=== PATIENT | female | born 1995 | race American Indian/Alaskan Native ===

== ENCOUNTER 2022-02-26 05:59 | Day surgery (SDC) | payer OTHER ==
--- NOTE | 2022-02-23 11:08 | Anesthesia Consultation ---
Anesthesia Consult and Med Hx Date of service: 02/26/22 - Airway Anesthetic Teeth Evaluation: Good ROM Head & Neck: Adequate Mental/Hyoid Distance: Adequate Mallampati Class: Class II Intubation Access Assessment: Probably Good - Pulmonary Exam CTA: Yes - Cardiac Exam Cardiac Exam: RRR - Pre-Operative Health Status ASA Pre-Surgery Classification: ASA2 Proposed Anesthetic Plan: General Nerve Block: TAP/ES - Pulmonary Hx Smoking: Yes (former smoker black and milds, current smoker THC) Hx Asthma: Yes (childhood; no recent symptoms) Hx Respiratory Symptoms: No - Cardiovascular System Hx Hypertension: No - Central Nervous System CVA: No - Endocrine Hx Renal Disease: No Hx Liver Disease: No Hx Insulin Dependent Diabetes: No Hx Non-Insulin Dependent Diabetes: No Hx Thyroid Disease: No - Hematic Hx Anemia: Yes (remote hx blood transfusion) - Other Systems Hx Substance Use: Yes (THC) Hx Obesity: No - Additional Comments Anesthesia Medical History Comments: No prior GA, No FHx anesthetic complications.
[2022-02-23 11:18] LABS: Basophils % (Auto) 0.2 % (0.0-1.8); Eosinophils % (Auto) 0.6 % (0.0-4.3); Hemoglobin 13.5 gm/dl (10.1-14.3); Lymphocytes # (Auto) 1.2 K/mm3 (1.2-5.4); Lymphocytes % (Auto) 20.6 % (13.4-35.0); Mean Corpuscular HGB Conc 33 % (30-34); Mean Corpuscular Volume 88 fl (79-97); Monocytes # (Auto) 0.3 K/mm3 (0.0-0.8); Monocytes % (Auto) 4.5 % (0.0-7.3); Platelet Count 260 K/mm3 (140-440); Red Blood Count 4.66 M/mm3 (3.65-5.03); Red Cell Distribution Width 15.2 % (13.2-15.2)
[2022-02-23 11:59] LABS: Blood Urea Nitrogen 10 mg/dL (7-17); Calcium 9.5 mg/dL (8.4-10.2); Hemolysis Index 9
[2022-02-23 12:06] LABS: BUN/Creatinine Ratio 20
--- NOTE | 2022-02-23 14:44 | History and Physical Report ---
History of Present Illness Date of examination: 02/20/22 History of present illness: Patient has been reassessed/reevaluated. H&P has been reviewed. No interval changes. This is a 26 years old female who presents with menstrual disorder. The symptoms began >1 year ago. She complains of heavy bleeding, clotting, and dysmenorrhea.. Menses started at age 15. Interval between menses is 28 days and 30 days. Menstrual flow lasts 6 days and 7 days. Patient reports that for pain she uses ibuprofen. The patient also presents with pelvic pain. The symptoms began many years ago and is worsening. Patient states she was told it was endometriosis, but previuos treatments have not helped. She complains of dysmenorrhea, nausea and vomiting, but denies dysuria, dyspareunia, vaginal itching, vaginal discharge, vaginal odor, painful bowel movements, constipation, diarrhea, back pain and fever. Pain is located RLQ, LLQ and suprapubic. She describes the pain as achy, sharp and cramping. Duration of pain is >1 hour. She was seen at [place] and diagnosed with fibroids. Patient's work up in my office has included a transvaginal ultrasound which revealed leiomyoma. Patient's symptoms when present disrupts her normal daily activities. Conservative therapies have failed. Patient desires definitive treatment ] Vital Signs: Patient Profile: 26 Years Old Female LMP: 02/20/2022 Height: 67 inches Weight: 133 pounds BMI: 20.83 Temp: 97.7 degrees F BP sittin / 80 (left arm) Menstrual History: LMP (date): 02/20/2022 Current Method of Contraception: None Past History : 0 Term Births: 0 Premature Births: 0 Living Children: 0 Para: 0 Mult. Births: 0 Prev : 0 Aborta: 0 Elect. Ab: 0 Spont. Ab: 0 Ectopics: 0 Current Allergies (reviewed today): No known allergies Past Medical History: Asthma G E R D Fibroids Past Surgical History: Jaw surgery (abscess) Family History Summary: Other Family Member - Has No Family History of Colon Cancer - Entered On: 12/25/2021 Other Family Member - Has No Family History of Breast Cancer - Entered On: 12/25/2021 Other Family Member - Has Family History of Thyroid Disease - Entered On: 12/25/2021 Other Family Member - Has Family History of Hypertension - Entered On: 12/25/2021 Other Family Member - Has Family History of Diabetes - Entered On: 12/25/2021 Other Family Member - Has Family History of CVA or Stroke - Entered On: 12/25/2021 Other Family Member - Has Family History of Coronary Heart Disease - Entered On: 12/25/2021 Social History: Marital Status: Single Children: 0 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 of genital herpes: no Hx of STD: None Review of Systems General Complains of fatigue. Denies fever, chills, sweats, anorexia, weakness, malaise, weight loss and sleep disorder. Complains of menorrhagia, pelvic pain and painful periods. Denies vaginal discharge, incontinence, dysuria, hematuria, urinary frequency, amenorrhea, abnormal vaginal bleeding, genital sores, decreased libido, painful sex, urinary urgency, hot flashes, vaginal dryness, vaginal itching and vaginal odor. CV Denies chest pains, palpitations, syncope, dyspnea on exertion, orthopnea, PND and peripheral edema. Resp Denies cough, dyspnea at rest, excessive sputum, hemoptysis, wheezing and pleurisy. GI Denies nausea, vomiting, diarrhea, constipation, change in bowel habits, abdominal pain, melena, hematochezia, jaundice, gas/bloating, indigestion/hea rtburn, dysphagia and odynophagia. Breast Denies left breast lump, right breast lump, nipple discharge, bloody discharge from nipple, breast pain, abnormal mammogram and breast enlargement. Psych Denies depression, anxiety, irritability and mood swings. Patient has been reassessed/reevaluated/re-examined. H&P has been reviewed. No interval changes. Past History Past Medical History: other (SEE HPI) Past Surgical History: Other (SEE HPI) Social history: full code, other (SEE HPI) Family history: other (SEE HPI) Medications and Allergies Allergies Allergy/AdvReac Type Severity Reaction Status Date / Time No Known Allergies Allergy Unverified 01/21/22 12:39 Home Medications Medication Instructions Recorded Confirmed Last Taken Type Acetaminophen [Tylenol Extra 500 mg PO PRN 01/21/22 01/21/22 Unknown History Strength] Celecoxib [celeBREX] 200 mg PO BID 01/21/22 01/21/22 Unknown History Naproxen Sodium [Naproxen Sodium 550 mg PO BID 01/21/22 01/21/22 Unknown History 550mg] medroxyPROGESTERone ACETATE 2 tab PO DAILY 01/21/22 01/21/22 Unknown History [Medroxyprogesterone Acetate] Active Meds: Active Medications Acetaminophen (Acetaminophen 500 Mg Tab) 1,000 mg PO PREOP JUAN R Stop: 02/26/22 20:00 Celecoxib (Celecoxib 200 Mg Cap) 200 mg PO PREOP NR Stop: 02/26/22 20:00 Fentanyl (Fentanyl 100 Mcg/2 Ml Inj) 100 mcg IV ONCE PRN PRN Reason: sedation for nerve block Stop: 02/26/22 20:00 Gabapentin (Gabapentin 300 Mg Cap) 300 mg PO PREOP NR Stop: 02/26/22 20:00 Lactated Ringer's (Lactated Ringers) 1,000 mls @ 100 mls/hr IV DIRECT JUAN R Stop: 02/26/22 23:59 Methocarbamol 1,000 mg/ Sodium (Chloride) 260 mls @ 250 mls/hr IV PREOP JUAN R Stop: 02/26/22 20:00 Midazolam HCl (Midazolam 2 Mg/2 Ml Inj) 2 mg IV PREOP NR Stop: 02/26/22 20:00 Scopolamine (Scopolamine Transdermal Patch 72 Hr) 1 each TD PREOP NR Stop: 02/26/22 20:00 Review of Systems Constitutional: other (SEE HPI) Exam - Physical Exam Narrative exam: HEENT: normocephalic, no lesions or deformities Skin no significant abnormal lesions or rashes Chest: respiratory effort normal, clear to auscultation CV: regular, normal S1-S2, no murmur, no rub, no gallop Abdomen: normal bowel sounds, soft, nontender, no HSM Neuro: no gross anomalities Extremities: no clubbing, cyanosis, or edema 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 Exams Vulva/Vagina: No lesions, normal BUS, normal rugae Cervix: No lesions; no cervical motion tenderness Uterus: unable to palpate due to patient's guarding Adnexae: unable to palpate due to patient's guarding Rectovaginal: exam defered - Constitutional Vitals: Temp Pulse Resp BP Pulse Ox 98 F 84 16 126/84 100 02/23/22 10:45 02/23/22 10:45 02/23/22 10:45 02/23/22 10:45 02/23/22 10:45 Results - Labs CBC & Chem 7: 02/23/22 06:00 02/23/22 10:50 Labs: Abnormal lab results 02/23/22 02/23/22 Range/Units 06:00 10:50 Seg Neutrophils % 74.1 H (40.0-70.0) % Creatinine 0.5 L (0.6-1.2) mg/dL Glucose 104 H (65-100) mg/dL Assessment and Plan - Patient Problems (1) Intramural leiomyoma of uterus Current Visit: No Status: Acute Plan to address problem: Diagnosis explained to patient . Questions answered. Discussed with patient various medical, surgical and radiological therapies common for treatment including expectant management, myomectomy hysterectomy and uterine artery embolization Patient desires definitive treatment Patient desires to retain future fertility. She desires myomectomy. Discussed risks and benefits of laparotomy and robotic assisted approaches Patient desires robotic assisted myomectomy. Discuss the risks of the surgery including infection, bleeding possibly heavy enough to require a blood transfusion, possible damage to bowel, bladder or ureter. Patient understands that there is a possibility that a hysterectomy maybe indicated for severe bleeding not resoved with conservative measures.Patient advised the small risks of spreading of malignancy if morcellator is used during the surgery patient understands and approve of use if necessary. All her questions were answered. Patient understands and desires to proceed. (2) Menorrhagia Current Visit: No Status: Acute Qualifiers: Menorrhagia type: with regular cycle Qualified Code(s): N92.0 - Excessive and frequent menstruation with regular cycle Plan to address problem: Probably secondary to # 1 (3) Dysmenorrhea Current Visit: No Status: Acute Plan to address problem: Probably secondary to # 1 (4) Anemia Current Visit: No Status: Acute Qualifiers: Iron deficiency anemia type: chronic blood loss Plan to address problem: Probably secondary to # 3 (5) Pelvic pain Current Visit: No Status: Acute (6) Asthma Current Visit: No Status: Chronic Qualifiers: Asthma severity: mild
[2022-02-26] MEDS ORDERED: MIDAZOLAM 2 MG/2 ML INJ IV NR (06:00)
[2022-02-26] MEDS ORDERED: CELECOXIB 200 MG CAP PO NR (06:00)
[2022-02-26] MEDS ORDERED: GABAPENTIN 300 MG CAP PO NR (06:00)
[2022-02-26] MEDS ORDERED: ACETAMINOPHEN 500 MG TAB PO SCH (06:00)
[2022-02-26] MEDS ORDERED: fentaNYL 100 MCG/2 ML INJ IV PRN (06:00)
[2022-02-26] MEDS ORDERED: LACTATED RINGERS 1,000 ML IV SCH (06:00)
[2022-02-26] MEDS ORDERED: methOCARBAMOL 1,000 MG in SODIUM CHLORIDE 0.9% 250ML 250 ML IV SCH (06:00)
[2022-02-26] MEDS: SCOPOLAMINE TRANSDERMAL PATCH 72 HR TD NR ×2 (06:40→08:36)
[2022-02-26] MEDS ORDERED: propofoL 200 MG/20 ML VIAL IV ONE (07:12)
[2022-02-26] MEDS ORDERED: ROCURONIUM 50 MG/5 ML INJ IV ONE (07:12)
[2022-02-26] MEDS ORDERED: KETAMINE/STERILE WATER 50 MG/ML SYRINGE ONE (07:12)
[2022-02-26] MEDS ORDERED: LIDOCAINE MPF (2%) 20 MG/1 ML VIAL 5 ML ONE (07:12)
[2022-02-26] MEDS ORDERED: ceFAZolin/Water 2 GM/20 ML 2 GM/20 ML SYRINGE IV NR (07:30)
[2022-02-26] MEDS ORDERED: dexAMETHasone 4 MG/ML VIAL ONE (07:31)
[2022-02-26] MEDS ORDERED: BUPIVACAINE/PF (0.25%) 2.5 MG/ML 30 ML VIAL INFILTRATI ONE (07:31)
[2022-02-26] MEDS ORDERED: SODIUM CHLORIDE 0.9% 100 ML ONE (07:33)
[2022-02-26] MEDS ORDERED: VASOPRESSIN 20 UNIT/1 ML INJ ONE (07:33)
--- NOTE | 2022-02-26 08:25 | Anesthesia Day of Surgery ---
Anesthesia Day of Surgery - Day of Surgery Patient Examined: Yes Patient H&P Reviewed: Yes Patient is NPO: Yes
[2022-02-26] MEDS ORDERED: oxyCODONE /ACETAMINOPHEN 5-325MG TAB PO PRN (09:00)
[2022-02-26] MEDS ORDERED: ONDANSETRON 4 MG/2 ML INJ IV PRN (09:00)
[2022-02-26] MEDS ORDERED: VASOPRESSIN 20 UNIT/1 ML INJ IM ONE (09:08)
[2022-02-26] MEDS ORDERED: SODIUM CHLORIDE 0.9% IRRIG SOLN 2000 ML IR ONE (09:09)
[2022-02-26] MEDS ORDERED: SODIUM CHLORIDE 0.9% IRR 1,500 ML BOTTLE IR ONE (09:09)
[2022-02-26] MEDS ORDERED: SODIUM CHLORIDE 0.9% 100 ML IVPB IV ONE (09:09)
[2022-02-26] MEDS ORDERED: HYDROcodone/ACETAMINOPHEN 5-325 MG TAB PO PRN (10:31)
[2022-02-26] MEDS ORDERED: ACETAMINOPHEN 325 MG TAB PO PRN (10:31)
[2022-02-26] MEDS ORDERED: ONDANSETRON 4 MG/2 ML INJ ONE (10:32)
[2022-02-26] MEDS ORDERED: KETOROLAC 30 MG/1 ML INJ ONE (10:32)
[2022-02-26] MEDS ORDERED: HYDROmorphone 1 MG/1 ML INJ ONE (10:33)
--- NOTE | 2022-02-26 10:54 | Operative Report ---
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 No clear evidence of endometriosis seen. Patient with normal tubes and ovaries bilaterally. Specimen(s): Uterine leiomyomata Procedure: Patient taken operating room where general endotracheal anesthesia was induced difficulty. She was placed in dorsal lithotomy position prepped and draped in usual normal sterile fashion for robotic procedure. The Henson catheter was placed in urinary bladder without difficulty speculum placed in the vagina. A Summly uterine manipulator was placed without any difficulty. Then attention was switched to the patient's abdomen. Supra-umbilical incision was made with a knife. Spread with a hemostat. A 10-12 Trocar was placed in this incision while lifting out anterior abdominal wall under direct visualization. Intra- abdominal cavity was entered without any evidence of internal organ damage. Patient was insufflated approximately 3 and half liters of CO2 gas. Patient's pelvic findings noted above. The patient was perceived to be a candidate for robotic procedure. Three 8 mm robotic instrument trocars were placed. One on either side of the midline camera trocar approximately 8 cm from the midline and a third in the left lower quadrant approximately 2 fingerbreadths above the colby c crest. The trocars were placed under direct visualization with no signs of internal organ damage. An assistant professor nurse education port was placed in the right lower quadrant 2 fingerbreadths above the iliac crest under direct visualization without any evidence of internal organ damage, this was a 10-12 trocar. Nilton Gimenez fascia closure systems were placed in both the right lower quadrant trocar position and the midline trocar camera position. The patient was then placed in severe Trendelenburg position. At this time the da Kaye robot was docked on the patient's left side and robotic trocars were connected and robotic instruments placed in the normal fashion. At that time I my place under the operating braden. Pitressin was placed on the base of each of the leiomyomata with blanching clearly seen. The pedunculated posterior leiomyomata with grabs the serosa was cut within robotic scissors and this myoma was removed through the assistant professor nurse education port easily with the tenaculum. The serosa overlying the lower posterior myomas were then incised with the scissors, the myoma was easily cut and removed with the assistant professor nurse education tenaculum through the cyst port. Attention was then switched to the larger anterior myoma. Again the serosa of this myoma was then cut with the scissors. This myoma was then removed with cautery and blunt dissection. The myoma was removed from the bed in the myometrium with no evidence of entrance into the endometrial cavity. This myoma was removed through the assistant professor nurse education port by cutting it into 3 parts with the robotic scissors. The bed of the large myoma was irrigated and found to be hemostatic with Bovie. The defect in the myometrium was closed in running manner with 0 V-Loc sutures with good hemostasis. The remaining posterior defects were closed similarly with 0 Vicryl V-Loc suture with good hemostasis. The patient's pelvis was copiously irrigated and suction revealing good hemostasis. Surgicel was placed draped in the uterus and covering all visible suture lines. Patient's Henson catheter revealed a clear urine with no evidence of mixture with blood. All instruments were removed. The da Kaye device was undocked. The abdominal incisions were closed with 2-0 Vicryl it was placed through the Nilton Gimenez fascial closure system. This was followed by 4-0 Monocryl subcutaneously. Patient tolerated procedure well. Patient was awakened in operating room and accompanied to recovery room in good condition.
[2022-02-26] MEDS: HYDROmorphone 1 MG/1 ML INJ IV PRN ×4 (11:08→11:38)
--- NOTE | 2022-02-26 15:01 | Discharge Summary ---
Short Stay Discharge Plan Activity: advance as tolerated Diet: regular Wound: open to air Additional Instructions: Patient was admitted underwent the above him procedure without any complications. Patient was admitted and underwent above procedure without complications. Her post operative extended recovery observation course was benign she was afebrile throughout. Patient had no orthostatic symptoms. Patient was tolerating regular diet and voiding without difficulty at time of discharge. Patient incision was healing well without evidence of infection. Patient will be discharged with follow-up in office in 1-2 weeks for postop check patient to call office for any fever, chills, nausea, vomiting or pain not controlled by pain medication. Follow up with: PRIMARY CARE, [Primary Care Provider] - 7 Days Forms: Outpatient Surgery DC Inst. Prescriptions: Naproxen Sodium [Naproxen Sodium 550mg] 550 tab PO Q12HR #30 tab oxyCODONE /ACETAMINOPHEN [Percocet 5/325 mg] 1 tab PO Q6HR PRN #20 tablet PRN Reason: Pain
--- NOTE | 2022-02-26 15:01 | Post Anesthesia Evaluation ---
- Post Anesthesia Evaluation Patient Participated: Yes Airway Patent: Yes Stable Respiratory Function: Yes Nausea/Vomiting: No Temp > 96.8F: Yes Pain Manageable: Yes Adequeate Hydration: Yes Anesthesia Complications: No
[2022-02-26 15:47] VITALS: BP 118/75
== END 2022-02-26 15:40 | disposition home or self-care (01) ==
LOC: OR 05:59
PROVIDERS: ATTEND Obstetrics & Gynecology
DX: N92.0 Excessive and frequent menstruation with regular cycle (principal); D25.1 Intramural leiomyoma of uterus; R10.2 Pelvic and perineal pain; N94.4 Primary dysmenorrhea; D64.9 Anemia, unspecified; J45.909 Unspecified asthma, uncomplicated; F41.9 Anxiety disorder, unspecified; Z20.822 Contact with and (suspected) exposure to COVID-19; Z79.899 Other long term (current) drug therapy; Z98.890 Other specified postprocedural states
CPT/HCPCS: 36415; 58545; 64488; 80048; 84703; 85025; 86850; 86900; 86901; 88305; C1765; J0690; J1100; J1170; J1885; J2250; J2405; J2704; J2800; J3010; J3490; J7050; J7120; S2900; U0003; 64450

== ENCOUNTER 2022-03-17 09:45 | Emergency (ER) | payer OTHER ==
[2022-03-17 12:21] LABS: Hematocrit 40.3 % (30.3-42.9); Hemoglobin 13.8 gm/dl (10.1-14.3); Mean Corpuscular HGB Conc 34 % (30-34); Mean Corpuscular Volume 86 fl (79-97); Platelet Count 293 K/mm3 (140-440); Red Blood Count 4.69 M/mm3 (3.65-5.03); Red Cell Distribution Width 14.4 % (13.2-15.2)
[2022-03-17 12:43] LABS: Alanine Aminotransferase 17 units/L (7-56); BUN/Creatinine Ratio 20; Blood Urea Nitrogen 10 mg/dL (7-17); Calcium 9.6 mg/dL (8.4-10.2); Hemolysis Index 23
--- NOTE | 2022-03-17 13:22 | Ultrasound Report ---
ULTRASOUND PELVIS COMPLETE ULTRASOUND TRANSVAGINAL INDICATION / CLINICAL INFORMATION: pain s/p myomectomy. TECHNIQUE: Transabdominal and Transvaginal. Duplex Color Doppler used: Yes. COMPARISON: None available FINDINGS: UTERUS: Present. Anteverted. - Appearance (if present): Slightly heterogeneous. - Size in cm (if present): 9.3 x 4.4 x 4.6 - Endometrial Complex (if present): No significant abnormality.. Thickness in cm (if measured) = 1.5 - Mass lesions: There is a 1.8 x 0.9 x 1.3 cm hypoechoic area in the anterior wall which may represen t a small fibroid or possibly a myomectomy site. A 1.2 cm subserosal fibroid is identified in the ant erior fundus. No large submucosal fibroid is appreciated. - Additional findings: None. RIGHT ADNEXA: The right ovary measures 5.8 x 3.3 x 3.1 and contains a complex 3.6 cm cyst containing debris and thin internal septation. This may represent a hemorrhagic cyst. Normal color Doppler blood flow. LEFT ADNEXA: The left ovary is unremarkable measuring 3.1 x 1.9 x 2.3 cm. Normal color Doppler blood flow. URINARY BLADDER: No significant abnormality. FREE FLUID: Trace free fluid in the cul-de-sac appears physiologic. ADDITIONAL FINDINGS: None. IMPRESSION: 3.6 cm complex right ovarian cyst as described. This may represent a hemorrhagic cyst. Consider foll ow-up. Mild uterine fibroid disease. Possible myomectomy site as described. No large submucosal fibroid. Unremarkable endometrium and left ovary. Signer Name: Meek Moscoso Jr, MD Signed: 03/17/2022 1:18 PM Workstation Name: [id number]
[2022-03-17 16:02] LABS: Bilirubin,Urine NEG (Negative); Blood,Urine NEG (Negative); Color,Urine Yellow (Yellow); Mucus,Urine 2+ /HPF; Protein,Urine <15 mg/dL mg/dL (Negative); Urobilinogen,Urine < 2.0 mg/dL (<2.0); WBC,Urine < 1.0 /HPF (0.0-6.0)
--- NOTE | 2022-03-17 16:47 | Emergency Department Report ---
ED Abdominal Pain HPI - General Chief Complaint: Abdominal Pain Stated Complaint: STOMACH PAIN Time Seen by Provider: 03/17/22 14:07 Source: patient Mode of arrival: Ambulatory Limitations: No Limitations - History of Present Illness Initial Comments: 26 yo black female who had a robotic myomectomy on 02/[address] Alves presents to the ed for evaluation of abdominal pain. She states that for the past 2 days, she has had increasing pain along with n/v. She states that she had same symptoms just prior to having myomectomy. She denies fever, diarrhea, dysuria. She states that she is scheduled for follow up on 04/06 but pain is to bad to wait so she decided to come here for further evaluation. MD Complaint: abdominal pain -: Gradual, days(s) (2) Location: LLQ, RLQ Radiation: none Migration to: no migration Severity: severe Quality: aching Associated Symptoms: nausea, vomiting. denies: diarrhea, fever, chills, constipation, dysuria, hematemesis, melena, hematuria, anorexia, syncope - Related Data Home Medications Medication Instructions Recorded Confirmed Last Taken Acetaminophen [Tylenol Extra 500 mg PO PRN 01/21/22 02/26/22 02/22/22 09:00 Strength] Celecoxib [celeBREX] 200 mg PO BID 01/21/22 02/26/22 01/26/22 09:00 Naproxen Sodium [Naproxen Sodium 550 mg PO BID 01/21/22 02/26/22 01/26/22 09:00 550mg] medroxyPROGESTERone ACETATE 2 tab PO DAILY 01/21/22 02/26/22 01/26/22 09:00 [Medroxyprogesterone Acetate] Previous Rx's Medication Instructions Recorded Last Taken Type Naproxen Sodium [Naproxen Sodium 550 tab PO Q12HR #30 tab 02/26/22 Unknown Rx 550mg] oxyCODONE /ACETAMINOPHEN [Percocet 1 tab PO Q6HR PRN #20 tablet 02/26/22 Unknown Rx 5/325 mg] Ibuprofen [Motrin 600 MG tab] 600 mg PO Q8H PRN #30 tablet 03/17/22 Unknown Rx Allergies Allergy/AdvReac Type Severity Reaction Status Date / Time No Known Allergies Allergy Verified 03/17/22 10:19 ED Review of Systems ROS: Stated complaint: STOMACH PAIN Other details as noted in HPI Comment: All other systems reviewed and negative Constitutional: denies: chills, fever Respiratory: denies: SOB with exertion Cardiovascular: denies: chest pain, palpitations Gastrointestinal: abdominal pain, nausea, vomiting. denies: diarrhea, constipation, hematemesis, melena, hematochezia Genitourinary: denies: urgency, dysuria, frequency, hematuria, discharge, dyspareunia Musculoskeletal: denies: back pain Neurological: denies: headache, weakness, numbness, paresthesias, abnormal gait ED Past Medical Hx - Past Medical History Previous Medical History?: Yes Hx Hypertension: No Hx Diabetes: No Hx GERD: No Hx Liver Disease: No Hx Renal Disease: No Hx Sickle Cell Disease: No Hx Asthma: Yes (childhood; no recent symptoms) Hx Tuberculosis: No Hx HIV: No - Surgical History Past Surgical History?: Yes Additional Surgical History: myomectomy - Social History Smoking Status: Never Smoker Substance Use Type: None - Medications Home Medications: Home Medications Medication Instructions Recorded Confirmed Last Taken Type Acetaminophen [Tylenol Extra 500 mg PO PRN 01/21/22 02/26/22 02/22/22 09:00 History Strength] Celecoxib [celeBREX] 200 mg PO BID 01/21/22 02/26/22 01/26/22 09:00 History Naproxen Sodium [Naproxen Sodium 550 mg PO BID 01/21/22 02/26/22 01/26/22 09:00 History 550mg] medroxyPROGESTERone ACETATE 2 tab PO DAILY 01/21/22 02/26/22 01/26/22 09:00 History [Medroxyprogesterone Acetate] Naproxen Sodium [Naproxen Sodium 550 tab PO Q12HR #30 tab 02/26/22 Unknown Rx 550mg] oxyCODONE /ACETAMINOPHEN [Percocet 1 tab PO Q6HR PRN #20 tablet 02/26/22 Unknown Rx 5/325 mg] Ibuprofen [Motrin 600 MG tab] 600 mg PO Q8H PRN #30 tablet 03/17/22 Unknown Rx ED Physical Exam - General Limitations: No Limitations General appearance: alert, in no apparent distress - Head Head exam: Present: atraumatic, normocephalic - Eye Eye exam: Present: normal appearance. Absent: conjunctival injection - Neck Neck exam: Present: normal inspection, full ROM. Absent: tenderness, lymphadenopathy - Respiratory Respiratory exam: Present: normal lung sounds bilaterally. Absent: respiratory distress, wheezes, rales, rhonchi, stridor, chest wall tenderness - Cardiovascular Cardiovascular Exam: Present: regular rate, normal heart sounds - GI/Abdominal GI/Abdominal exam: Present: soft, tenderness (R & LLQ), normal bowel sounds. Absent: distended, guarding, rebound, rigid - Extremities Exam Extremities exam: Present: normal inspection, normal capillary refill. Absent: pedal edema, joint swelling, calf tenderness - Back Exam Back exam: Present: normal inspection. Absent: CVA tenderness (R), CVA tenderness (L), vertebral tenderness - Neurological Exam Neurological exam: Present: alert, oriented X3 - Psychiatric Psychiatric exam: Present: normal affect, normal mood - Skin Skin exam: Present: warm, dry, intact, normal color ED Course Vital Signs 03/17/22 03/17/22 10:18 16:56 Temperature 97.9 F 98.2 F Pulse Rate 93 H 68 Respiratory 16 18 Rate Blood Pressure 131/87 Blood Pressure 118/72 [Right] O2 Sat by Pulse 100 98 Oximetry ED Medical Decision Making - Lab Data Result diagrams: 03/17/22 11:58 03/17/22 11:58 - Radiology Data Radiology results: report reviewed US pelvic complete and transvaginal: Findings: Uterus: present, anteverted. - appearance- (if present): slightly heterogeneous. - size in cm (if present): 9.3 X 4.4 X 4.6. - Endometrial complex (if present): no significant abnormality. Thickness in cm (if measured)= 1.5 - Mass lesions: There is a 1.8 X 0.8 X 1.3 cm hypoechoic area in the anterior wall which may represent a small fibroid or possibly a myomectomy site. A 1.2 cm subserosal fibroid is identified in the anterior fundus. No large submucosal fibroid appreciated. - additional findings: none Right adenexa: the right ovary measures 5.8 X 3.3 X 3.1 and contains a complex 3.6 cm cyst containing debris and thin internal septation. This may represent a hemorrhagic cyst. Normal color Doppler blood flow. Left Adnexa:The left ovary is unremarkable measuring 3.1 X 1.9 X 2.3 cm. Normal color Doppler blood flow. Urinary bladder: no significant abnormality. Free fluid: Trace free fluid in the cul-de-sac appears physiologic. Additional findings: None Impression: 3.6 cm complex right ovarian cyst as described. This may represent a hemorrhagic cyst. Consider follow up. Mild uterine fibroid disease. Possible myomectomy site as described. No large submucosal fibroid. Unremarkable endometrium and left ovary. - Medical Decision Making 26 yo black female who had a robotic myomectomy on 02/[address] Alves presents to the ed for evaluation of abdominal pain. She states that for the past 2 days, she has had increasing pain along with n/v. She states that she had same symptoms just prior to having myomectomy. She denies fever, diarrhea, dysuria. She states that she is scheduled for follow up on 04/06 but pain is to bad to wait so she decided to come here for further evaluation. No gross abnormalities noted on exam or on labs. Pelvic US with right ovarian cyst and no acute abnormalities. 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 She is advised to return to ed for any concerning symptoms. She verbalized understanding of and agreement with plan of care. Critical care attestation.: If time is entered above; I have spent that time in minutes in the direct care of this critically ill patient, excluding procedure time. ED Disposition Clinical Impression: Right ovarian cyst Abdominal pain Qualifiers: Abdominal location: lower abdomen, unspecified Qualified Code(s): R10.30 - Lower abdominal pain, unspecified Disposition: 01 HOME / SELF CARE / HOMELESS Is pt being admited?: No Does the pt Need Aspirin: No Condition: Stable Instructions: Abdominal Pain, Adult, [id number], Ovarian Cyst, [id number], Abdominal Pain (ED) Additional Instructions: Take medications as prescribed. Follow-up with TRAFFIC REPORTER for further evaluation and management. Return to the ER as needed. Prescriptions: Ibuprofen [Motrin 600 MG tab] 600 mg PO Q8H PRN #30 tablet PRN Reason: Pain Referrals: WILFREDO ALVES MD [Staff Physician] - 3-5 Days Time of Disposition: 16:47
[2022-03-17 16:58] VITALS: BP 118/72
== END 2022-03-17 16:58 | disposition home or self-care (01) ==
LOC: ED 09:45
DX: N83.291 Other ovarian cyst, right side (principal); R10.9 Unspecified abdominal pain
CPT/HCPCS: 36415; 76830; 76856; 80053; 81001; 84703; 85027; 99284